=== PATIENT | female | born 1955 | race Caucasian/White ===

== ENCOUNTER 2020-02-10 05:14 | Day surgery (SDC) | payer OTHER, BC ==
[2020-02-07 16:07] VITALS: BMI 40.2
[2020-02-10 09:32] VITALS: TEMP 97.1
[2020-02-10 09:54] VITALS: BP 145/57; PULSE 66
== END 2020-02-10 10:14 | disposition home or self-care (01) ==
LOC: JASU-ENDO 05:14
PROVIDERS: ATTEND Internal Medicine Gastroenterology
PROC: 0DJD8ZZ Inspection of Lower Intestinal Tract, Via Natural or Artificial Opening Endoscopic (ICD-10-PCS; principal; 2020-02-10 08:59)
DX: Z86.010 Personal history of colon polyps (principal); K57.30 Diverticulosis of large intestine without perforation or abscess without bleeding